=== PATIENT | female | born 1970 | race Caucasian/White ===

== ENCOUNTER → 2020-10-01 | Outpatient (CLI) | payer BC ==
[2015-05-15 01:10] VITALS: BP 124/78
[~2020-10-01] MED LIST: IOHEXOL 240 MG/ML 50ML VIAL. ONE; IOHEXOL 240 MG/ML 50ML VIAL. PO ONE; IOHEXOL 300 MG/ML 75 ML VIAL. IV ONE
--- NOTE | 2020-10-01 15:52 | RAD ---
EXAM: CT Abdomen and Pelvis with IV contrast CLINICAL HISTORY: Abdominal bloating, projectile vomiting. COMPARISON: none TECHNIQUE: Helical CT of the abdomen and pelvis was performed following the administration of intrave nous contrast. Axial, coronal and sagittal reformatted images were generated. PQRS compliance statement - One or more of the following individualized dose reduction techniques wer e utilized for this study: 1. Automated exposure control 2. Adjustment of the mA and/or kV according to patient size 3. Use of iterative reconstruction technique FINDINGS: Lung bases are clear. Bilateral breast implants are partially profiled. No focal liver lesion. Gallbladder is normal. No biliary duct dilatation. Low density lesion within t he pancreatic head measures 4 mm. Spleen and adrenal glands are unremarkable. Symmetric nephrograms. No focal renal lesion. No hydronephrosis. No hydroureter. Bladder wall thickening likely cystitis. Le ft adnexal cystic structure is seen. Appendix is normal. Moderate colonic stool content is seen. No small or large bowel dilatation. No thong wel obstruction. There is mild thickening of a segment of proximal jejunum. No abdominal ascites. Trace pelvic ascites. No abdominal or pelvic lymphadenopathy. Trace fat-contain ing periumbilical hernia. Uterine fibroid is suspected. Hip joint degenerative changes are seen bilaterally. Symphysis pubis degenerative changes are seen. IMPRESSION: 1. Mild thickening of a segment of proximal jejunum, may be seen with enteritis. 2. No bowel obstruction. 3. No CT evidence for colitis. 4. Uterine fibroid is seen with mild mass effect on the endometrium. Electronically signed by: Lonnie Calderón MD (10/01/2020 3:49 PM) [id number]
== END ==
LOC: CT 08:11
PROVIDERS: ATTEND Family Medicine
DX: R14.0 Abdominal distension (gaseous) (principal); D25.9 Leiomyoma of uterus, unspecified
CPT/HCPCS: 74177; Q9966; Q9967

== ENCOUNTER → 2020-11-05 | Outpatient (CLI) | payer BC ==
[2015-05-15 01:10] VITALS: BP 124/78
--- NOTE | 2020-11-05 15:00 | RAD ---
Small bowel follow-through study 11/05/2020 CLINICAL HISTORY: Abdominal pain. Constipation. Diarrhea and bloating. TECHNIQUE: A small bowel follow-through study was performed under radiographic control. FINDINGS: Comparison is made to a CT scan of the abdomen and pelvis dated 10/01/2020. An AP digital radiograph of the abdomen was obtained as a chemistry quality control analyst. The lung bases are clear. The abdomi nal bowel gas pattern is nonobstructive. No radiopaque calculus is seen. Calcifications are seen with in the pelvis consistent with phleboliths. The osseous structures are grossly intact. The mucosal pattern of the duodenum, jejunum, ileum and terminal ileum is within normal limits. The c ecum is in its normal location within the right lower quadrant of the abdomen. The small bowel transi t time is within normal limits. No extrinsic mass effect upon the small bowel is seen. IMPRESSION: Negative study. Electronically signed by: Juan Sanchez MD (11/05/2020 2:58 PM) [id number]
== END ==
LOC: RAD 08:08
PROVIDERS: ATTEND Internal Medicine Gastroenterology
DX: K50.00 Crohn's disease of small intestine without complications (principal); K59.00 Constipation, unspecified
CPT/HCPCS: 74250

== ENCOUNTER → 2021-01-18 | Outpatient (CLI) | payer BC ==
[2015-05-15 01:10] VITALS: BP 124/78
--- NOTE | 2021-01-18 15:42 | RAD ---
BILATERAL DIAGNOSTIC MAMMOGRAPHY AND RIGHT BREAST ULTRASOUND History: Right axillary lump waxes and wanes x1 year. Now smaller. Comparison: Bilateral mammogram March 22, 2016, [facility]. Technique: Routine bilateral digital mammogram views performed. Routine MLO and CC tomosynthesis (3D) digital views performed with implants displaced. Images reviewed by the radiologist at dedicated wor kstation. Findings: Breast Tissue Density D :The breasts are extremely dense, which lowers the sensitivity of mammography . There are bilateral retropectoral saline implants. The area of palpable concern in the right axilla i s outside of the [id number]. There are no dominant masses, suspicious microcalcifications or architectural distortion. Real-time ultrasound imaging of the right axilla is performed. At the area of palpable concern there is a benign lymph node measuring 1.2 x 0.4 cm. The lymph node h as a thin cortex and normal fatty hilum. IMPRESSION: 1. No mammographic evidence of malignancy. 2. There is a benign right axillary lymph node at the area of palpable concern. 3. Recommend routine mammogram screening. BI-RADS category 2: Benign findings. The images were reviewed with computer-aided detection. Patient information is entered into the reminder system with a target due date for the next screening mammogram. Mammography is the most sensitive method for finding small breast cancers, but it does not detect the m all and is not a substitute for careful clinical examination. A negative mammogram does not negate a clinically suspicious finding and should not result in delay in biopsying a clinically suspicious a bnormality. "Our facility is accredited by the [employer] Mammography Program." Electronically signed by: William Miguel MD (01/18/2021 3:39 PM) [id number]
== END ==
LOC: MAMMO 13:20
PROVIDERS: ATTEND Family Medicine
DX: N63.20 Unspecified lump in the left breast, unspecified quadrant (principal); N63.31 Unspecified lump in axillary tail of the right breast
CPT/HCPCS: 76642; 77066; G0279; 77062